=== PATIENT | female | born 1970 | race Caucasian/White ===

== ENCOUNTER 2016-09-13 20:20 | Emergency (ER) | payer OTHER ==
[2016-09-13 20:30] VITALS: BP 89/49
[2016-09-13] MEDS ORDERED: HYDROmorphone 0.5 MG/0.5 ML Syringe IVPUSH ONE (20:44)
--- NOTE | 2016-09-13 20:50 | EDM.PDOC ---
ED HPI GENERAL MEDICAL PROBLEM - General Chief Complaint: Upper Extremity Injury/Pain Stated Complaint: FELL AND HURT HER LEFT ARM Time Seen by Provider: 09/13/16 20:35 Source of Information: Reports: Patient History Limitations: Reports: No Limitations - History of Present Illness INITIAL COMMENTS - FREE TEXT/NARRATIVE: Patient is a 46-year-old female who presents the ED complaining of left elbow pain. Patient and family were in the swimming pool and the patient had 3 alcoholic beverages, gin and tonics. Upon getting out of the pool patient lost her balance and fell into a grill. She was not knocked out. Nor has she complained of any neck or back pain. She was assisted up and was able to ambulate to the patient's vehicle with no issues. Pain is isolated to the left elbow. She denies any pain to the left shoulder, upper arm, forearm, wrist, hand. She has no numbness or tingling. Last meal was approximately noon today. She denies prior history of injury to the left arm. 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 Upon admission patient was noted at a low blood pressure. Per patient this is normal for her as well as her bradycardia. Denies any chest pain, shortness of breath, nausea/vomiting, vision changes, head/neck/back pain , or any additional complaints. Past medical history: Hypothyroidism Current medications: Levothyroxin Alcohol use occasionally. Denies recreational drug use. Left Shoulder Pain Score (Numeric/FACES): 10 - Related Data Allergies Allergy/AdvReac Type Severity Reaction Status Date / Time Penicillins Allergy Cannot Verified 09/13/16 20:34 Remember Home Meds: Home Meds Acetaminophen/HYDROcodone [[place] 325-5 MG] 1 tab PO Q6H PRN #20 tablet 09/13/16 [Rx] Cholecalciferol (Vitamin D3) [Vitamin D3] 3,000 units PO DAILY 09/13/16 [History ] Levothyroxine [Synthroid] 88 mcg PO DAILY 09/13/16 [History] Magnesium 1 tab PO DAILY 09/13/16 [History] Past Medical History Endocrine/Metabolic History: Reports: Hypothyroidism Social & Family History - Tobacco Use Smoking Status *Q: Never Smoker Review of Systems - Review of Systems Review Of Systems: ROS reveals no pertinent complaints other than HPI. ED EXAM, GENERAL - Physical Exam Exam: See Below Exam Limited By: Intoxication (Alcohol on board) General Appearance: Alert, WD/WN, Mild Distress Eye Exam: Bilateral Eye: Nystagmus (Was horizontal present, negative vertical), PERRL Ears: Hearing Grossly Normal Nose: Normal Inspection, Normal Mucosa, No Blood Throat/Mouth: Normal Inspection, Normal Oropharynx, Normal Voice, No Airway Compromise Head: Atraumatic, Normocephalic Neck: Normal Inspection, Supple, Non-Tender, Full Range of Motion. No: Lymphadenopathy (L), Lymphadenopathy (R), Tender Lateral, Tender Midline Respiratory/Chest: No Respiratory Distress, Lungs Clear, Normal Breath Sounds, No Accessory Muscle Use, Chest Non-Tender Cardiovascular: Normal Peripheral Pulses, Regular Rate, Rhythm, No Murmur Peripheral Pulses: 2+: Radial (L) GI/Abdominal: Normal Bowel Sounds, Soft, Non-Tender, No Organomegaly, No Distention Back Exam: Normal Inspection, Full Range of Motion (Nontender) Extremities: Other (Left upper extremity: No pain with palpation of left shoulder, upper arm, forearm, wrist, hand. Pain with palpation of the posterior aspect of the olecranon. Unable to evaluate range of motion secondary to pain. Superficial bruise to the right anterior tidwell proximal to the ankle. No pain on palpation of the other extremities.) Neurological: Alert, Oriented, CN II-XII Intact, Normal Cognition, No Motor/ Sensory Deficits Psychiatric: Normal Affect, Normal Mood Skin Exam: Warm, Dry, Intact, Normal Color, No Rash Course - Vital Signs Last Recorded V/S: Last Vital Signs Temp 96.8 F 09/13/16 20:29 Pulse 50 L 09/13/16 20:29 Resp 20 09/13/16 20:29 BP 89/49 L 09/13/16 20:29 Pulse Ox 99 09/13/16 20:29 - Orders/Labs/Meds Orders: Active Orders 24 hr Category Date Time Status Elbow Min 3V Lt [CR] Stat Exams 09/13/16 20:44 Taken Meds: Medications Discontinued Medications Generic Name Dose Route Start Last Admin Trade Name Freq PRN Reason Stop Dose Admin Hydromorphone HCl 0.25 mg 09/13/16 20:44 09/13/16 20:50 Dilaudid IVPUSH 09/13/16 20:45 0.25 mg ONETIME ONE Administration Ketorolac Tromethamine 30 mg 09/13/16 22:16 09/13/16 22:24 Toradol IVPUSH 09/13/16 22:17 30 mg ONETIME ONE Administration - Re-Assessments/Exams Free Text/Narrative Re-Assessment/Exam: Ordered x-ray of the left elbow for suspected fracture. In addition ordered 0.25 mg IVP for pain. Patient does have alcohol onboard 3 gin and tonics. She is alert and oriented 3. 09/13/16 21:15 x-ray of the left elbow do not reveal any acute bony abnormalities. This is reviewed with Dr. Varma. Final interpretation is pending. Further history from the fall patient fell backwards trying to catch her self with her left arm presumably/possibility hyperextending her elbow. Thus since no bony abdomen is more likely soft tissue. Will place patient in a posterior splint with sling. She'll follow-up with orthopedic surgeon in the next 2-3 days for reevaluation. 09/13/16 22:39 reassessment, pain hasn't improved with the Toradol 30 mg IVP. Able to further assess the left shoulder and which she is able to raise her arm above the shoulder with no pain. No sensory deficits noted to the fingers. Vital signs are stable. Blood pressure 105/64, heart rate 54, respirations 14. Will discharge patient home with instructions as documented. 09/13/16 22:53 patient got up and ambulated just fine with minimal assistance. Will discharge patient home. Departure - Departure Time of Disposition: 22:40 Disposition: Home, Self-Care 01 Condition: Good Clinical Impression: Left elbow pain Hyperextension injury of elbow Qualifiers: Encounter type: initial encounter Laterality: left Qualified Code(s): S59.802A - Other specified injuries of left elbow, initial encounter - Discharge Information Prescriptions: Acetaminophen/HYDROcodone [[place] 325-5 MG] 1 tab PO Q6H PRN #20 tablet PRN Reason: Pain (Severe 7-10) Instructions: Cast or Splint Care, [id number], Pain Medicine Instructions, [id number], How to Use a Sling, [id number] Referrals: Vanessa Martinez NP [Primary Care Provider] - Osvaldo Winters MD [Physician] - Forms: ED Department Discharge Additional Instructions: Keep splint in place until evaluated by orthopedic surgeon. Call [facility] morning to be evaluated this coming week. Elevate when able to reduce swelling and pain. Take Tylenol and ibuprofen and alternate fashion for mild to moderate pain. Apply ice to affected area 4-6 times daily, 20 months in duration, refrain from any contact with skin. For severe pain take [place] one tab by mouth every [address] while taking the [place]. Do not take Pal[place]ra this evening with alcohol on board. Return to the ED as needed for any new or worsening symptoms. - My Orders Last 24 Hours: My Active Orders 09/13/16 20:44 Elbow Min 3V Lt [CR] Stat - Assessment/Plan Last 24 Hours: My Active Orders 09/13/16 20:44 Elbow Min 3V Lt [CR] Stat
[2016-09-13] MEDS ORDERED: Ketorolac 30 MG/ML SDV IVPUSH ONE (22:16)
--- NOTE | 2016-09-15 07:53 | CR ---
Left elbow: Three portable views of the left elbow were obtained. Soft tissue edema is seen. Joint spaces are preserved. No joint effusion is seen. No acute fracture, dislocation or other bony abnormality is seen. Impression: 1. Soft tissue edema. 2. No acute bony abnormality is appreciated. Diagnostic code #2
== END 2016-09-13 23:05 | disposition home or self-care (01) ==
LOC: JD.ED 20:20
DX: S59.802A Other specified injuries of left elbow, initial encounter (principal); E03.9 Hypothyroidism, unspecified; Z79.899 Other long term (current) drug therapy; X50.1XXA Overexertion from prolonged static or awkward postures, initial encounter; W17.89XA Other fall from one level to another, initial encounter; Y92.34 Swimming pool (public) as the place of occurrence of the external cause; Z88.0 Allergy status to penicillin
CPT/HCPCS: 29105; 73080; 96374; 96375; 99284; J1170; J1885; 99283-25

== ENCOUNTER 2018-08-20 08:28 | Emergency (ER) | payer OTHER ==
--- NOTE | 2018-08-20 09:04 | EDM.PDOC ---
ED HPI GENERAL MEDICAL PROBLEM - General Chief Complaint: Respiratory Problem Stated Complaint: COUGH AND SOB Time Seen by Provider: 08/20/18 08:48 Source of Information: Reports: Patient History Limitations: Reports: No Limitations - History of Present Illness INITIAL COMMENTS - FREE TEXT/NARRATIVE: The patient presents with shortness of breath and a cough. This has been going on since Thursday. She has no fever or chills. She does have a sore throat. She slept in a recliner last night due to the coughing. She heard crackles in her breathing and was worried this could be CHF. Her is young and has CHF and the sound is like his when he has an exacerbation. She has a sore throat and some congestion. She has no chest pain and no swelling in her legs. She has no heart problems and no other medical problems. Onset: Gradual Duration: Day(s): (4) Severity: Moderate Improves with: Reports: None Worsens with: Reports: None Associated Symptoms: Reports: Cough. Denies: Chest Pain, Fever/Chills, Headaches, Nausea/Vomiting, Shortness of Breath - Related Data Allergies Allergy/AdvReac Type Severity Reaction Status Date / Time Penicillins Allergy Cannot Verified 08/20/18 08:45 Remember Home Meds: Home Meds Levothyroxine [Synthroid] 88 mcg PO DAILY 09/13/16 [History] Albuterol [Proventil HFA] 2 puff INH Q4H PRN #1 inhaler 08/20/18 [Rx] Azithromycin [Zithromax] 250 mg PO DAILY #6 tab 08/20/18 [Rx] Codeine/Promethazine [Phenergan with Codeine] 5 - 10 ml PO Q6HR PRN #300 ml [Rx] Past Medical History Endocrine/Metabolic History: Reports: Hypothyroidism Social & Family History - Tobacco Use Smoking Status *Q: Never Smoker - Recreational Drug Use Recreational Drug Use: No ED ROS GENERAL - Review of Systems Review Of Systems: See Below Constitutional: Reports: No Symptoms HEENT: Reports: Other (Congestion and sore throat) Respiratory: Reports: Shortness of Breath, Cough Cardiovascular: Reports: No Symptoms Endocrine: Reports: No Symptoms GI/Abdominal: Reports: No Symptoms : Reports: No Symptoms Musculoskeletal: Reports: No Symptoms ED EXAM, GENERAL - Physical Exam Exam: See Below Exam Limited By: No Limitations General Appearance: Alert, No Apparent Distress Ears: Normal External Exam Nose: Normal Inspection Head: Atraumatic, Normocephalic Neck: Normal Inspection Respiratory/Chest: No Respiratory Distress, Wheezing (Mild wheeze in the bases) Cardiovascular: Regular Rate, Rhythm, No Edema, No Murmur GI/Abdominal: Soft, Non-Tender, No Organomegaly, No Mass Back Exam: Normal Inspection Extremities: Normal Inspection Neurological: Alert, Oriented, No Motor/Sensory Deficits Course - Vital Signs Last Recorded V/S: Last Vital Signs Temp 97.1 F 08/20/18 08:42 Pulse 101 H 08/20/18 08:42 Resp 21 H 08/20/18 08:42 BP 165/102 H 08/20/18 08:42 Pulse Ox 100 08/20/18 09:05 - Orders/Labs/Meds Orders: Active Orders 24 hr Category Date Time Status Cardiac Monitoring [RC] . DIRECTED Care 08/20/18 08:58 Active EKG Documentation Completion [RC] STAT Care 08/20/18 08:59 Active RT Aerosol Therapy [RC] ASDIRECTED Care 08/20/18 09:05 Active Labs: Laboratory Tests 08/20/18 08/20/18 08/20/18 Range/Units 09:10 09:10 09:10 WBC 5.78 (3.98-10.04) K/mm3 RBC 4.76 (3.98-5.22) M/mm3 Hgb 14.4 (11.2-15.7) gm/L Hct 42.3 (34.1-44.9) % MCV 88.9 (79.4-94.8) fl MCH 30.3 (25.6-32.2) pg MCHC 34.0 (32.2-35.5) g/dl RDW Std Deviation 46.1 (36.4-46.3) fL Plt Count 269 (182-369) K/mm3 MPV 10.6 (9.4-12.3) fl Neut % (Auto) 69.4 (34.0-71.1) % Lymph % (Auto) 16.4 L (19.3-51.7) % [place] % (Auto) 10.7 (4.7-12.5) % Eos % (Auto) 2.8 (0.7-5.8) Baso % (Auto) 0.5 (0.1-1.2) % Neut # (Auto) 4.01 (1.56-6.13) K/mm3 Lymph # (Auto) 0.95 L (1.18-3.74) K/mm3 [place] # (Auto) 0.62 H (0.24-0.36) K/mm3 Eos # (Auto) 0.16 (0.04-0.36) K/mm3 Baso # (Auto) 0.03 (0.01-0.08) K/mm3 Sodium 137 (136-145) mEq/L Potassium 3.6 (3.5-5.1) mEq/L Chloride 104 (98-107) mEq/L Carbon Dioxide 22 (21-32) mEq/L Anion Gap 14.6 (5-15) BUN 11 (7-18) mg/dL Creatinine 0.9 (0.55-1.02) mg/dL Est Cr Clr Drug Dosing 73.90 mL/min Estimated GFR (MDRD) > 60 (>60) mL/min BUN/Creatinine Ratio 12.2 L (14-18) Glucose 100 (74-106) mg/dL Calcium 9.1 (8.5-10.1) mg/dL Total Bilirubin 0.3 (0.2-1.0) mg/dL AST 15 (15-37) U/L ALT 25 (14-59) U/L Alkaline Phosphatase 84 (46-116) U/L Troponin I < 0.017 (0.00-0.056) ng/mL NT-Pro-B Natriuret Pep 35 (0-125) pg/mL Total Protein 7.6 (6.4-8.2) g/dl Albumin 3.9 (3.4-5.0) g/dl Globulin 3.7 gm/dL Albumin/Globulin Ratio 1.1 (1-2) Meds: Medications Discontinued Medications Generic Name Dose Route Start Last Admin Trade Name Freq PRN Reason Stop Dose Admin Albuterol/Ipratropium 3 ml 08/20/18 09:05 08/20/18 10:16 Duoneb 3.0-0.5 Mg/3 Ml NEB 08/20/18 09:06 3 ml ONETIME ONE Administration - Re-Assessments/Exams Free Text/Narrative Re-Assessment/Exam: 08/20/18 09:07 I ordered an EKG, CXR, labs and a duoneb. 08/20/18 10:30 Her EKG shows a NSR with no acute changes. Her CXR shows nothing acute as read by Dr Lin. Her CBC and CMP look good. Her troponin and BNP were normal. I feel she has bronchitis. I will get her on a z-francis, phenergan with codeine for the cough and albuterol inhaler. Departure - Departure Time of Disposition: 10:35 Disposition: Home, Self-Care 01 Condition: Good Clinical Impression: Bronchitis - Discharge Information *PRESCRIPTION DRUG MONITORING PROGRAM REVIEWED*: No *COPY OF PRESCRIPTION DRUG MONITORING REPORT IN PATIENT MARISOL: No Prescriptions: Codeine/Promethazine [Phenergan with Codeine] 5 - 10 ml PO Q6HR PRN #300 ml PRN Reason: Cough Albuterol [Proventil HFA] 2 puff INH Q4H PRN #1 inhaler PRN Reason: Shortness Of Breath Azithromycin [Zithromax] 250 mg PO DAILY #6 tab Referrals: Vanessa Martinez, [facility] [Primary Care Provider] - 1 Week Forms: ED Department Discharge Additional Instructions: Get some rest today. Take the zithromax 2 pills on day 1 and 1 pill on day 2 through 5. Use the albuterol inhaler 2 puffs every 6 hours as needed for wheezing or shortness of breath. Take the phenergan with codeine 5 to 10mls every 6 hours as needed for cough. Please return if you are worse. - My Orders Last 24 Hours: My Active Orders 08/20/18 08:58 Cardiac Monitoring [RC] . DIRECTED 08/20/18 08:59 EKG Documentation Completion [RC] STAT 08/20/18 09:05 RT Aerosol Therapy [RC] ASDIRECTED - Assessment/Plan Last 24 Hours: My Active Orders 08/20/18 08:58 Cardiac Monitoring [RC] . DIRECTED 08/20/18 08:59 EKG Documentation Completion [RC] STAT 08/20/18 09:05 RT Aerosol Therapy [RC] ASDIRECTED
[2018-08-20] MEDS ORDERED: Albuterol/Ipratropium 3.0-0.5 MG/3 ML Neb Soln NEB ONE (09:05)
--- NOTE | 2018-08-20 09:46 | CR ---
Chest: Two views of the chest were obtained. Comparison: No prior chest x-rays available. Heart size and mediastinum are within normal limits. Lungs are clear with no acute parenchymal change. Bony structures are unremarkable. Impression: 1. Nothing acute is appreciated on two-view chest x-ray. Diagnostic code #1
[2018-08-20 10:44] VITALS: BP 133/91
== END 2018-08-20 10:43 | disposition home or self-care (01) ==
LOC: JD.ED 08:28
DX: J40 Bronchitis, not specified as acute or chronic (principal); E03.9 Hypothyroidism, unspecified; Z88.0 Allergy status to penicillin; Z79.899 Other long term (current) drug therapy
CPT/HCPCS: 36415; 71046; 71046-26; 80053; 83880; 84484; 85025; 93005; 93010; 94640; 99283; 99284-25; J7620-GY

== ENCOUNTER 2021-11-27 06:08 | Day surgery (SDC) | payer OTHER ==
[~2021-11-27 06:08] MED LIST: Acetaminophen 325 MG Tab PO SCH; Lactated Ringers 1,000 ML IV SCH; Lidocaine 1%/Sod Bicarbonate in NS 8.4% 1 ML Syringe IDERM PRN; Morphine 8 MG, EPINEPHrine 0.3 MG, Cefuroxime 750 MG, Ketorolac 30 MG, Sodium Chloride ... PRN; Pregabalin 25 MG Cap PO SCH; Sodium Chloride 0.9% 10 ML Syringe FLUSH PRN; oxyCODONE ER 10 MG TAB.ER PO SCH
[2021-11-27] MEDS ORDERED: Vancomycin 1 GM SDV ONE (06:12)
[2021-11-27] MEDS ORDERED: Lidocaine 1% 4 ML ONE (06:24)
[2021-11-27] MEDS ORDERED: Propofol 200 MG/20 ML SDV ONE ×2 (06:24→07:24)
[2021-11-27] MEDS ORDERED: Midazolam 1 MG/ML 2 ML SDV ONE (06:26)
[2021-11-27] MEDS ORDERED: Ropivacaine 0.5% 5 MG/ML 30 ML SDV ONE (06:29)
[2021-11-27] MEDS ORDERED: EPINEPHrine 1 MG/ML SDV ONE (06:29)
[2021-11-27] MEDS ORDERED: Triamcinolone Acetonide 40 MG/ML 1 ML SDV ONE (06:44)
[2021-11-27] MEDS ORDERED: Bupivacaine 0.25% 10 ML SDV ONE (06:44)
[2021-11-27] MEDS ORDERED: ceFAZolin 2 GM Vial ONE (07:19)
[2021-11-27] MEDS ORDERED: Ondansetron 4 MG/2 ML SDV ONE (07:25)
[2021-11-27] MEDS ORDERED: Phenylephrine HCl In 0.9% NaCl 1 MG/10 ML Vial ONE (07:26)
[2021-11-27] MEDS ORDERED: ePHEDrine 50 MG/ML SDV ONE (07:49)
[2021-11-27] MEDS ORDERED: Lactated Ringers 1,000 ML ONE (07:54)
[2021-11-27] MEDS ORDERED: fentaNYL 100 MCG/2 ML SDV IVPUSH PRN (08:44)
[2021-11-27] MEDS ORDERED: HYDROmorphone 0.5 MG/0.5 ML Syringe IVPUSH PRN (08:44)
[2021-11-27] MEDS ORDERED: Ondansetron 4 MG/2 ML SDV IVPUSH PRN (08:44)
[2021-11-27] MEDS ORDERED: Sodium Chloride 0.9% 10 ML Syringe FLUSH SCH (09:00)
[2021-11-27] MEDS ORDERED: Cyclobenzaprine 10 MG Tab PO ONE (09:30)
[2021-11-27] MEDS: oxyCODONE 5 MG Tab PO PRN ×2 (10:31→11:57)
[2021-11-27 12:21] VITALS: BP 94/56; PULSE 60
== END 2021-11-27 13:05 | disposition home or self-care (01) ==
LOC: JD.SDS 06:08
PROVIDERS: ATTEND Orthopaedic Surgery
DX: M17.0 Bilateral primary osteoarthritis of knee (principal); I10 Essential (primary) hypertension; E03.9 Hypothyroidism, unspecified; F41.9 Anxiety disorder, unspecified; Z88.0 Allergy status to penicillin; Z79.899 Other long term (current) drug therapy; Z79.890 Hormone replacement therapy; Z98.890 Other specified postprocedural states
CPT/HCPCS: 0055T; 20610; 27447; 73560; 97116; 97161; A9270; C1713; C1776; J0171; J0690; J0697; J1885; J2250; J2270; J2405; J2704; J2795; J3301; J3370; J3490; J7120; 01402; 64450; 76942